=== PATIENT | male | born 1985 | race Caucasian/White ===

== ENCOUNTER 2021-08-07 12:38 | Emergency (ER) | payer BC, SELFPAY ==
[2021-08-07 13:25] VITALS: BP 115/72; PULSE 82; RESP 20; TEMP 36.8; O2SAT 98; BMI 23.8
--- NOTE | 2021-08-07 14:06 | ED_ITS ---
HPI - Skin/Abscess/Foreign Bdy General: Chief complaint: General Medical Stated complaint: L side PT says possible infection of injection Time Seen by Provider: 08/07/21 13:57 Source: patient Mode of arrival: ambulatory Limitations: no limitations History of Present Illness: HPI narrative: Patient is a 35-year-old male who presents to ED today with a complaint of induration and swelling following injection of a diabetic needle/insulin. Patient states 2 days ago he injected hi mself with insulin to his right lateral abdomen. He states shortly after he began noticing swelling to the area that has continued to enlarge. He states area is warm to touch. complaint: lesion Onset (ago): hour(s) Tetanus up to date: yes Severity: mild Relieving factors: none Exacerbating factors: none Associated symptoms: Reports no associated symptoms; Deny chills, fever(s) or vomiting Treatments prior to arrival: none Review of Systems Const: Denies: fever(s), chills, body aches or fatigue Card: Denies: chest pain Resp: Denies: dyspnea GI: Denies: abdominal pain, vomiting or diarrhea : Denies: flank pain or dysuria Skin/Breast: Reports: new lesions Neuro: Denies: headache(s) Physical Exam Const: COMMON NORMALS: no acute distress, average body habitus, patient oriented x3, no limitations, healthy appearing, alert and well nourished Resp: COMMON NORMALS: normal respiratory effort and clear to auscultation bilaterally AUSCULTATION: clear to auscultation bilaterally Cardio: COMMON NORMALS: regular rate and regular rhythm RATE: regular rate RHYTHM: regular rhythm GI: GI image (male): 1. 2in indurated area with small injection bandar; area is warm to touch but no overlying erythema; no fluctuance at this time Neuro: COMMON NORMALS: patient oriented x3 SENSORIUM/ORIENTATION: Yes alert Course Vital Signs: Vital signs: Vital Signs Temperature 98.2 F 08/07/21 13:25 Pulse Rate 82 08/07/21 13:25 Respiratory Rate 20 H 08/07/21 13:25 Blood Pressure 115/72 08/07/21 13:25 Pulse Oximetry 98 08/07/21 13:25 MDM - Skin/Abscess/Foreign Bdy MDM Narrative: Medical decision making narrative: Patient here with induration at an injection site. At this time I would recommend alternating warm and cold compresses and continuing to monitor for the next 24 to 48 hours. Told patient I will write him a prescription for antibiotics should area continue to worsen. Patient verbalizes understanding. Discharge Plan Discharge Patient Disposition: Home Clinical Impression: Induration at injection site Condition: Stable Prescriptions: New Bactrim DS 800-160 mg tablet 1 tab PO BID 7 Days Qty: 14 RF: 0 Discharge Orders: Discharge ED (Routine); Ordered 08/07/21 Ordered By: Christel Melara Coding Level of Care Code ED Data Analytics Specialist for Deng Branham
== END 2021-08-07 14:27 | disposition home or self-care (01) ==
PROVIDERS: Emergency Provider Physician Assistant
DX: R23.4 Changes in skin texture (principal); T80.90XA Unspecified complication following infusion and therapeutic injection, initial encounter; Y74.1 Therapeutic (nonsurgical) and rehabilitative general hospital and personal-use devices associated with adverse incidents
CPT/HCPCS: 99281

== ENCOUNTER 2021-08-09 08:34 | Observation (INO) | payer BC, SELFPAY ==
[2021-08-09] VITALS (13 sets, daily range): BP systolic 111–132; BP diastolic 59–90; PULSE 62–98; RESP 14–18; TEMP 36.8–37.3; O2SAT 95–100; BMI 23.7
--- NOTE | 2021-08-09 09:15 | XRR_ITS ---
PROCEDURE INFORMATION: Exam: XR Chest Exam date and time: 08/09/2021 9:15 AM Age: 35 years old Clinical indication: Fever TECHNIQUE: Imaging protocol: XR of the chest. Views: 1 view. COMPARISON: CR Chest 1 [place] [id number] 10/18/2016 9:54 PM FINDINGS: Lungs: Unremarkable. No consolidation. Pleural spaces: Unremarkable. No pleural effusion. No pneumothorax. Heart/Mediastinum: Stable cardiomediastinal silhouette. Bones/joints: Unremarkable. XR/XR chest 1V portable [id number] IMPRESSION: No acute findings. Radiation Dose CTDIVOL = (mGy): DLP = (mGy-cm)
--- NOTE | 2021-08-09 09:15 | ECG_ITS ---
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1985 Requested By: Aleja Esposito Order Number: [id number] Reading MD: BELINDA GO Measurements Intervals [place] Rate: 86 P: 62 WA: 149 QRS: 15 QRSD: 92 T: 64 QT: 368 QTc: 440 Interpretive Statements SINUS RHYTHM Compared to ECG 10/18/2016 21:46:20 Sinus tachycardia no longer present ST (T wave) deviation no longer present Early repolarization no longer present Electronically Signed On 08-10-2021 12:54:07 CENTRAL SUPPLY AIDE by BELINDA GO [email or web address]/[id number]
--- NOTE | 2021-08-09 09:29 | W.ED.EXTPRO ---
HPI - Extremity Problem General: Chief complaint: Extremity Problem,Nontraumatic Stated complaint: INFECTION/SWELLING IN R HIP Time Seen by Provider: 08/09/21 08:53 Source: patient Mode of arrival: ambulatory Limitations: no limitations History of Present Illness: HPI Narrative: Patrick is a nice 35-year-old male with a history of type 1 diabetes who comes in complaining of right hip pain. Patient states after Thanksgiving he noticed a red tender area over his right hip. He was seen here in the ER and placed on Bactrim. He states has been on this for approximately 24 hours but the swelling has gotten bigger. He says he feels in general unwell with aches and pains but denies any true fever. He has had no nausea or vomiting or diarrhea. The area is significantly larger and appears swollen. He is able to walk without any difficulty. Because of this he comes in to be evaluated for worsening of his infection. Associated symptoms: Deny chest pain, fever(s) or rash Review of Systems Const: Denies: fever(s), chills, body aches, fatigue, malaise or diaphoresis Eyes: Denies: change in vision, blurry vision, photophobia, eye discomfort, eye discharge, eye redness or yellow eyes ENMT: Denies: throat pain, odynophagia, hoarseness, swelling of lips/tongue, ear or mastoid pain, ear discharge, change in hearing or nasal discharge Card: Denies: chest pain, palpitations, irregular heart rhythm, edema, lightheadedness, syncope, pre-syncope, dyspnea on exertion or orthopnea Resp: Denies: dyspnea, productive cough, non-productive cough, wheezing, hemoptysis or chest congestion GI: Denies: abdominal pain, nausea, vomiting, hematemesis, coffee ground emesis, heartburn, diarrhea, constipation, GI cramping, hematochezia or melena : Denies: flank pain, dysuria, urinary frequency, urinary urgency or hematuria Musc: Denies: neck pain, back pain, extremity pain, extremity swelling, joint pain, joint swelling, joint redness, joint warmth or joint stiffness Skin/Breast: Reports: erythema, skin pain and skin tenderness; Denies: rash or pruritus Neuro: Denies: headache(s), numbness in extremities, weakness in extremities, sensory changes, lack of coordination, difficulty walking, dizziness, vertigo, confusion, Slurred speech present or seizure-like activity Eligio/Lymph: Denies: easy bruising, easy bleeding, petechiae, purpura or enlarged lymph nodes All/Imm: Denies: urticaria, throat swelling, tongue swelling, facial swelling or acute wheezing PFSH ED PFSH: Medical History (Updated 08/09/21 @ 11:45 by Aleja Bowen) Diabetes mellitus Physical Exam Const: COMMON NORMALS: no acute distress, patient oriented x3, no limitations and alert GENERAL APPEARANCE: cooperative HENMT: COMMON NORMALS: normocephalic, atraumatic, external ears normal, EAC's normal and Normal external nose present HEAD & SCALP: normal to inspection, normocephalic and atraumatic FACE & SINUS: normal facial exam and face symmetric NOSE: Normal external nose present and Normal nares present EXTERNAL EAR: Yes external ears normal EXTERNAL AUDITORY CANAL: EAC's normal MOUTH: Normal oral and palatal mucosa present, lip normal and tongue normal Eye: COMMON NORMALS: Equal, round and reactive pupils present and conjunctivae normal GENERAL EYE: appearance normal, both eyes and all related structures ALIGNMENT: Yes alignment normal PERIORBITAL: periorbital findings normal EYELID: eyelids normal CONJUNCTIVA: Yes conjunctivae normal SCLERA: sclerae normal PUPIL: Yes Equal, round and reactive pupils present Neck/C-Spine: COMMON NORMALS: full ROM, no lymphadenopathy, supple, no meningeal signs and no JVD GENERAL: Yes normal visual inspection and Yes trachea midline Chest: COMMONS NORMALS: normal inspection of the chest and normal palpation of entire chest wall Resp: COMMON NORMALS: normal respiratory effort, No retractions, No use of accessory muscles and clear to auscultation bilaterally EFFORT & INSPECTION: Yes able to speak in complete sentences and Yes symmetric chest movement AUSCULTATION: clear to auscultation bilaterally, no crackles, no rales, no rhonchi and no wheezes Cardio: COMMON NORMALS: no JVD, regular rate, regular rhythm, S1 normal heart sound present and S2 normal heart sound present RATE: regular rate RHYTHM: regular rhythm HEART SOUNDS: S1 normal heart sound present, S2 normal heart sound present, no click, no gallops, no murmurs and no rubs GI: COMMON NORMALS: Soft to palpation and No hepatosplenomegaly present PALPATION: Yes Soft to palpation, No Tenderness to palpation present (GI), No Guarding due to palpation present (GI), No Rigid due to palpation, Yes No hepatosplenomegaly present, No Hernia present, No Palpable mass present and No Pulsatile mass present : COMMON NORMALS: Yes no CVA tenderness BLADDER/KIDNEY EXAM: Yes no CVA tenderness Back/Pelvis: COMMON NORMALS: no CVA tenderness, thoracic and lumbar spine normal to inspection, no thoracic nor lumbar tenderness and thoraco-lumbar ROM normal Extremity: COMMON NORMALS: normal to inspection, full ROM, capillary refill normal, no joint enlargement, no clubbing, cyanosis or edema and no calf tenderness Neuro: COMMON NORMALS: patient oriented x3, CN's II-XII intact bilaterally, moves all extremities, no focal motor deficits and no sensory deficits noted SENSORIUM/ORIENTATION: Yes alert MENINGEAL SIGNS: Yes no meningeal signs SPEECH: speech normal Psych: COMMON NORMALS: mental status grossly normal, Normal thought process present, cooperative, normal affect, speech normal and activity/motor behavior normal SPEECH: Yes normal speech THOUGHT PROCESS: Normal thought process present Skin: COMMON NORMALS: turgor normal, no jaundice, no petechiae and no mottling NARRATIVE SKIN EXAM: Area over right hip with swelling and induration and cellulitis. Fluctuance present. GENERAL SKIN EXAM: turgor normal Course Vital Signs: Vital signs: Vital Signs Temperature 99.1 F 08/09/21 08:49 Pulse Rate 83 08/09/21 10:53 Respiratory Rate 14 08/09/21 10:53 Blood Pressure 112/90 08/09/21 10:53 Pulse Oximetry 95 08/09/21 10:53 MDM - Extremity (Nontraumatic) [facility] Narrative: Medical decision making narrative: 1144 -the patient appears to have a deep abscess by bedside ultrasound. It is large and I believe will not be amenable to draining here in the ER. He is likely continue to go the operating room for the most appropriate treatment. I reviewed the case in full with Dr. Mendoza who is agreeable to do so. I reviewed the case in full with Dr. Lowe. He agrees to admit and he will work-up the patient for possible endocarditis with echo, continued IV antibiotics and will follow from here. At this time the patient has full range of motion of his hip without any sign of discomfort. I believe he probably has some skin discomfort but there is no sign of septic joint. Patient is not diabetic ketoacidosis but will continue monitor him closely. Lab Data: Attestation: I reviewed the patient's lab results. Labs: Lab Results 08/09/21 08/09/21 08/09/21 09:38 10:05 10:05 WBC 14.5 10^3/uL H 10 ^3/uL (4.0-10.0) RBC 3.89 10^6/uL L 10 ^6/uL (4.1-5.3) Hgb 12.0 g/dL g/dL (11.7-16.6) Hct 36.8 % L % (42.0-52.0) MCV 94.6 fl H fl (80-94) MCH 30.8 pg pg (28.0-34.0) MCHC 32.6 g/dL g/dL (30.0-36.0) RDW 12.2 % % (12.1-15.1) Plt Count 295 10^3/cmm 10^3 /cmm (130-400) MPV 9.6 fL fL (7.4-10.4) Neut % (Auto) 72.2 % % Lymph % (Auto) 18.4 % % Jack % (Auto) 7.4 % % Eos % (Auto) 1.2 % % Baso % (Auto) 0.3 % % Neut # (Auto) 10.49 10^3/uL H 1 0^3/uL (1.8-7.7) Lymph # (Auto) 2.7 10^3/uL 10^3/ uL (0.8-4.8) Jack # (Auto) 1.1 10^3/uL H 10^ 3/uL (0.2-0.9) Eos # (Auto) 0.2 10^3/uL 10^3/ uL (0.0-0.8) Baso # (Auto) 0.0 10^3/uL 10^3/ uL (0.0-0.1) Nucleated RBC % (a uto) 0 % % Nucleated RBCs # 0.0 /100WBC /100W BC Specimen Type Arterial Sample Site Radial, right ABG pH 7.41 (7.35-7.45) ABG pCO2 42.5 mmHg mmHg (35-45) ABG pO2 78.6 mmHg L mmHg (80.0-100.0) ABG HCO3 27.0 mmol/L H mmo l/L (22-26) ABG O2 Saturation 96.7 ABG Base Excess 2.1 mmol/L H mmol /L (-2.0-2.0) Jose Test Pos A-a O2 Gradient 2.5 mmHg L mmHg (5-10) Hematocrit 34.8 % L % (42-52) Hgb O2 Saturation 94.4 % L % (95-100) Carboxyhemoglobin 1.3 %THgb %THgb (0.4-20.1) Methemoglobin 1.1 % % (0.4-1.5) Total Hemoglobin 11.4 g/dL L g/dL (14-18) Sodium 128.0 mmol/L L mm ol/L 125 mmol/L L mmol /L (131-143) (136-145) Potassium 5.4 mmol/L H mmol /L 5.4 mmol/L H mmol /L (3.5-5.0) (3.5-5.1) Glucose 515.0 mg/dL H mg/ dL 523 mg/dL H* mg/d L (70-115) (65-115) Ionized Calcium 1.1 mmol/L mmol/L (1.1-1.4) O2 Delivery Device Room air FiO2 21.0 % % Human Resources Benefits Coordinator ID Ed Chloride 88 mmol/L L mmol/ L (98-107) Carbon Dioxide 24 mmol/L mmol/L (22-29) Anion Gap 18.4 (5-19) BUN 19 mg/dL mg/dL (6-20) Creatinine 1.0 mg/dL mg/dL (0.7-1.2) GFR Calculation 86.1 mL/min L mL/ min (90-130) Calculated Osmolal ity 286 mOsm/kg mOsm/ kg (285-295) Lactic Acid Calcium 8.9 mg/dL mg/dL (8.5-10.5) Magnesium 1.4 mg/dL L mg/dL (1.7-2.3) Total Bilirubin 1.2 mg/dL mg/dL (0.15-1.2) AST 39 U/L U/L (0-40) ALT 49 U/L H U/L (0-41) Alkaline Phosphata se 119 IU/L IU/L (40-130) Troponin T Baselin e Total Protein 6.7 g/dL g/dL (6.6-8.7) Albumin 3.5 g/dL g/dL (3.5-5.2) Globulin 3.2 g/dL g/dL (1.3-4.6) Serum Ketones 08/09/21 08/09/21 08/09/21 10:05 10:05 10:05 WBC RBC Hgb Hct MCV MCH MCHC RDW Plt Count MPV Neut % (Auto) Lymph % (Auto) Jack % (Auto) Eos % (Auto) Baso % (Auto) Neut # (Auto) Lymph # (Auto) Jack # (Auto) Eos # (Auto) Baso # (Auto) Nucleated RBC % (a uto) Nucleated RBCs # Specimen Type Sample Site ABG pH ABG pCO2 ABG pO2 ABG HCO3 ABG O2 Saturation ABG Base Excess Jose Test A-a O2 Gradient Hematocrit Hgb O2 Saturation Carboxyhemoglobin Methemoglobin Total Hemoglobin Sodium Potassium Glucose Ionized Calcium O2 Delivery Device FiO2 Human Resources Benefits Coordinator ID Chloride Carbon Dioxide Anion Gap BUN Creatinine GFR Calculation Calculated Osmolal ity Lactic Acid 1.1 mmol/L mmol/L (0.5-2.2) Calcium Magnesium Total Bilirubin AST ALT Alkaline Phosphata se Troponin T Baselin e 10 ng/L ng/L (0-15) Total Protein Albumin Globulin Serum Ketones Negative (Negative) Imaging Data^: CXR: Attestation: I personally reviewed and interpreted this imaging study as follows: My impression: No acute cardiopulmonary findings. EKG Data^: EKG 1: EKG interpretation date: 08/09/21 EKG interpretation time: 10:26 Interpretation: Normal sinus rhythm at 86 beats a minute, no blocks, normal intervals, no acute ST-T wave changes, significant wandering baseline artifact. Discharge Plan Discharge Patient Disposition: Admitted As Inpatient Clinical Impression: Abscess or cellulitis of hip Condition: Stable Prescriptions: No Action sulfamethoxazole-trimethoprim [Bactrim DS] 800-160 mg tablet 1 tab PO BID 7 Days Qty: 14 RF: 0 Coding Level of Care Code ED Avionics Systems Repairer for Chg Fwd Exam Comprehensive
--- NOTE | 2021-08-09 09:32 | XRR_ITS ---
PROCEDURE INFORMATION: Exam: XR Right Hip Exam date and time: 08/09/2021 9:32 AM Age: 35 years old Clinical indication: Hip pain; Right hip TECHNIQUE: Imaging protocol: XR Right hip. Views: 2 or 3 views hip with pelvis when performed. COMPARISON: No relevant prior studies available. FINDINGS: Bones/joints: Unremarkable. No acute fracture. Soft tissues: Unremarkable. XR/XR hip RT 2-3V wo/w pel* [id number] IMPRESSION: No acute findings. Radiation Dose CTDIVOL = (mGy): DLP = (mGy-cm)
[2021-08-09] MEDS: vancomycin 1,500 MG/300 ML PIGGYBACK 200 MG IV (09:51)
[2021-08-09] MEDS: morphine 4 mg/mL SDV 1 mL IVP (09:52)
[2021-08-09] MEDS: piperacillin-tazobactam 3.375 GM in sodium chloride 0.9% (plus) 50 ML IV ×2 (09:52→16:23)
[2021-08-09] MEDS: ondansetron 2 mg/ML SDV 2 mL 4 MG IVP (09:52)
[2021-08-09] MEDS: clindamycin 900 MG/50 ML PREMIX 100 MG IV (09:53)
[2021-08-09 10:10] LABS: ABG PCO2 42.5 mmHg (35-45); ABG PH Result 7.41 (7.35-7.45); Alveolar-Arterial Oxygen Gradi 2.5 mmHg (5-10); Arterial Blood Gas Hematocrit 34.8 % (42-52); Base Excess ABG 2.1 mmol/L (-2.0-2.0); Blood Gas Allen Test Pos; Blood Gas Operator Identificat ED; Blood Gas Sample Site Radial, right; Blood Gas Sample Type Arterial; Carboxyhemoglobin 1.3 %THgb (0.4-20.1); HGB O2 Sat 94.4 % (95-100); Ionized Calcium Level - ABG 1.1 mmol/L (1.1-1.4); Methemoglobin 1.1 % (0.4-1.5); Oxygen Device ROOM AIR; Oxygen Saturation ABG 96.7; PO2 ABG 78.6 mmHg (80.0-100.0); Potassium Level - ABG 5.4 mmol/L (3.5-5.0); Total Hemoglobin 11.4 g/dL (14-18)
[2021-08-09 10:34] LABS: Basophils % 0.3 %; Eosinophils # 0.2 10^3/uL (0.0-0.8); Eosinophils % 1.2 %; Hematocrit 36.8 % (42.0-52.0); Lymphocytes # 2.7 10^3/uL (0.8-4.8); Lymphocytes % 18.4 %; Mean Corpuscular HGB Conc 32.6 g/dL (30.0-36.0); Mean Corpuscular Hemoglobin 30.8 pg (28.0-34.0); Mean Corpuscular Volume 94.6 fl (80-94); Mean Platelet Volume 9.6 fL (7.4-10.4); Monocytes # 1.1 10^3/uL (0.2-0.9); Monocytes % 7.4 %; Neutrophils # 10.49 10^3/uL (1.8-7.7); Neutrophils % 72.2 %; Nucleated Red Blood Cells % 0 %; Platelet Count 295 10^3/cmm (130-400); Red Blood Count 3.89 10^6/uL (4.1-5.3); Red Cell Distribution Width 12.2 % (12.1-15.1); White Blood Count 14.5 10^3/uL (4.0-10.0)
[2021-08-09 10:48] LABS: Ketone (Acetest) Serum Negative (Negative)
[2021-08-09 11:01] LABS: Troponin(5th) Baseline 10 ng/L (0-15)
[2021-08-09 11:02] LABS: Alanine Aminotransferase 49 U/L (0-41); Albumin Level 3.5 g/dL (3.5-5.2); Alkaline Phosphatase 119 IU/L (40-130); Anion Gap 18.4 (5-19); Aspartate Amino Transferase 39 U/L (0-40); Blood Urea Nitrogen 19 mg/dL (6-20); Calcium 8.9 mg/dL (8.5-10.5); Carbon Dioxide 24 mmol/L (22-29); Chloride 88 mmol/L (98-107); Globulin 3.2 g/dL (1.3-4.6); Glomerular Filtration Rate 86.1 mL/min (90-130); Magnesium 1.4 mg/dL (1.7-2.3); Osmolality Calculated 286 mOsm/kg (285-295); Potassium 5.4 mmol/L (3.5-5.1); Sodium 125 mmol/L (136-145); Total Bilirubin 1.2 mg/dL (0.15-1.2); Total Protein 6.7 g/dL (6.6-8.7)
[2021-08-09 11:03] LABS: Lactic Sepsis W/Reflex 1.1 mmol/L (0.5-2.2)
[2021-08-09 11:14] LABS: Glucose 523 mg/dL (65-115)
--- NOTE | 2021-08-09 11:15 | ECG_ITS ---
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
[2021-08-09 11:51] LABS: Glucose Point of Care 307 mg/dL (70-110)
[2021-08-09] MEDS: insulin regular-human 100 units/1 mL 5 UNIT IVP (12:01)
[2021-08-09] MEDS: magnesium sulfate premix 2 GM/50 ML PIGGYBACK IV (12:07)
--- NOTE | 2021-08-09 12:40 | PC.NURSE ---
Attempted to call report to med surg, was placed on hold for 15 minutes with no answer.
--- NOTE | 2021-08-09 12:55 | PC.NURSE ---
Attempted to call report and this time. RN not available but will call back.
[2021-08-09 13:01] LABS: Troponin 5 2HR 8.98 ng/L (0-15)
[2021-08-09 13:10] LABS: Troponin 5 2HR Delta -1.02 ABS# (0-10)
[2021-08-09 13:13] LABS: Glucose Point of Care 238 mg/dL (70-110)
--- NOTE | 2021-08-09 14:18 | PM.HP ---
Providers/Chief Complaint Admitting Physician: Keith Lowe Chief Complaint: INFECTION/SWELLING IN R HIP History of Present Illness Pleasant 35-year-old gentleman with history of diabetes, remote history of IVDU, cellulitis and abscess, staph infection (does not remember if MRSA), needing antecubital debridement bilaterally, however, reports in long-term remission, has had no injection drug use, presents due to red area of the right pelvis, with swelling, tender, redness, started after he injected insulin through the shirt. Came for evaluation to ER yesterday, prescribed a course of Bactrim., However, swelling has gotten bigger. He reports that he uses insulin sliding scale. Does not use long-acting insulin but may need to. Reports has not had a A1c done in a while, last time it was 8. Reports does not measure blood glucose, usually goes by how he feels. Bedside ultrasound in ER with finding of soft tissue abscess by ER physician. Surgery consulted for I&D. Leukocytosis noted 14.5. Blood cultures collected. He received Zosyn, vancomycin, clindamycin. Glucose noted 523. Sodium 125, potassium 5.4, magnesium 1.4, BUN 19, creatinine 1, anion gap 18, bicarb 24. Denies any pain of the right hip or difficulty with weightbearing. No trouble moving his right hip. He is visiting in town with his for Thanksgiving. He is supposed to be heading back to [place] where he is supposed to be going back to work on Tuesday. 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 Review of Systems Const: Reports: body aches; Denies: fever(s) or chills Eyes: Denies: change in vision or eye redness ENMT: Denies: throat pain, oral sores or ear or mastoid pain Card: Denies: chest pain, edema, pre-syncope or dyspnea on exertion Resp: Denies: dyspnea, productive cough, change in phlegm color or hemoptysis GI: Denies: abdominal pain, nausea, vomiting, diarrhea, constipation, hematochezia or melena : Denies: flank pain, difficulty urinating, urinary frequency or hematuria Musc: Denies: back pain, joint swelling or joint redness Skin/Breast: Reports: erythema and skin swelling (Right side pelvis); Denies: rash Neuro: Denies: headache(s), numbness in extremities, weakness in extremities, dizziness, confusion or seizure-like activity Endo: Denies: polyuria or polydipsia Eligio/Lymph: Denies: easy bleeding or purpura All/Imm: Denies: urticaria, throat swelling or tongue swelling Medications/Allergies Home Medications Medication Instructions Recorded Confirmed Last Taken Type sulfamethoxazole-trimethoprim 1 tab PO BID 7 Days #14 tab 08/07/21 08/09/21 08/08/21 Rx [Bactrim DS] Allergies Allergy/AdvReac Type Severity Reaction Status Date / Time No Known Allergies Allergy Verified 08/09/21 08:49 PFSH Acute PFSH: Medical History Cellulitis and abscess of upper extremity Diabetes mellitus History of drainage of abscess Surgical History (Updated 08/09/21 @ 14:23 by Keith Lowe MD) History of intravenous drug abuse Family History Other No significant family history Social History Smoking and tobacco status: current every day smoker smokeless tobacco Smokeless tobacco user: chewing tobacco Alcohol intake: never Substance/Drug Use: never Lives independently: Yes Household members: spouse Marital status: Current occupational status: employed Vitals/I&O/Wt Last Vital Signs Temp 99.1 F 08/09/21 08:49 Pulse 83 08/09/21 10:53 Resp 14 08/09/21 10:53 BP 112/90 08/09/21 10:53 Pulse Ox 95 08/09/21 10:53 08/08/21 08/09/21 08/09/21 22:59 06:59 14:59 Intake Total 100 / 100 Balance 100 / 100 Weight last 48 hrs Weight 86.183 kg Physical Exam Const: COMMON NORMALS: no acute distress and patient oriented x3 HENMT: COMMON NORMALS: oropharynx normal Neck/C-Spine: COMMON NORMALS: no JVD Resp: COMMON NORMALS: normal respiratory effort and clear to auscultation bilaterally AUSCULTATION: clear to auscultation bilaterally Cardio: COMMON NORMALS: no JVD, regular rhythm, S1 normal heart sound present, S2 normal heart sound present and No murmurs present (Cardio) RHYTHM: regular rhythm HEART SOUNDS: S1 normal heart sound present and S2 normal heart sound present GI: COMMON NORMALS: Normal to inspection, nondistended, normoactive bowel sounds present, Soft to palpation and non-tender PALPATION: Yes Soft to palpation Extremity: COMMON NORMALS: no joint enlargement and no pedal edema Neuro: COMMON NORMALS: patient oriented x3 and moves all extremities Skin: GENERAL SKIN EXAM: erythema (posterolat R side pelvis, round, 10cm, swelling, warm, tender) Data : 08/09/21 10:05 08/09/21 10:05 Micro: Microbiology 08/09/21 10:05 Blood Culture - Preliminary Blood SPECIMEN COLLECTED 08/09/21 10:06 Blood Culture - Preliminary Blood SPECIMEN COLLECTED A&P Assessment and plan (1) Abscess or cellulitis of hip: Cellulitis and abscess of skin and soft tissue overlying posterior lateral right pelvis. Reports following insulin injection through through a short. Denies any recent IV drug use. Received Zosyn, vancomycin, clindamycin in ER. Blood cultures collected. Received fluid resuscitation. Abscess noted on bedside ultrasonography. Surgery consulted for I&D which is anticipated in OR. Continue antibiotics. Keep n.p.o. after midnight. Status: Acute (2) Hyperglycemia: Blood glucose 523. Received 10 units regular insulin. Continue to monitor blood glucose. Aggressive sliding scale. Status: Acute (3) Diabetes mellitus: Check A1c. He states has not been using his glucometer, administering insulin sliding scale by how he feels. Discussed with him to make sure to measure glucose and administer accordingly. Discussed importance of good diabetes control. Risks of poor diabetic control. He verbalized understanding. Encouraged him to follow-up with primary provider, he does not currently have one. Encouraged him to establish with one. He states intends to do so as soon as his insurance comes through. Status: Acute (4) Induration at injection site: Reported following insulin injection through a short. Discussed with him to avoid injecting through anything. Status: Acute (5) Hyperkalemia: Unclear if possibly due to Bactrim, although just prescribed yesterday. Recheck chemistry. Status: Acute (6) Hypomagnesemia: Replaced. Recheck level. Status: Acute (7) Hyponatremia: Sodium 125. Corrected for glucose 135. Status: Acute Attestations Medical Necessity Statement*: Place in observation for assessment and management of left posterior lateral pelvic skin and soft tissue cellulitis and abscess without response to conservative outpatient treatment and gentleman with underlying diabetes, history of staphylococcal infections requiring extensive debridement, as well as severe hyperglycemia and a number of electrolyte abnormalities. Coding Level of Care Code Acute Human Resources Consultant for [facility] Diagnoses Abscess or cellulitis of hip Hyperglycemia R73.9 Diabetes mellitus E11.9 Induration at injection site R23.4 Hyperkalemia E87.5 Hypomagnesemia E83.42 Hyponatremia E87.1
[2021-08-09] MEDS: sodium chloride 0.9% 1,000 ML 100 ML IV (16:12)
[2021-08-09 16:44] LABS: Glucose Point of Care 143 mg/dL (70-110)
[2021-08-09] MEDS: vancomycin 1,250 MG/250 ML PIGGYBACK 200 MG IV (17:33)
[2021-08-09] MEDS: insulin lispro 100 unit/1 mL SUBCUT (17:38)
--- NOTE | 2021-08-09 17:48 | P.CONIM_ITS ---
Providers/Reason For Consult Consulting Physician/Specialty*: General Surgery Dr. Mendoza Reason for Consult*: Right hip abscess Attending Physician: Keith Lowe History of Present Illness History of Present Illness Patrick Gillespie is a 35 year old male who is a insulin-dependent diabetic who presented to the ER the day before yesterday with pain, redness and swelling and was discharged home on Bactrim for the right hip cellulitis. Today he presented to the ER again with worsening pain redness and swelling in that region. Lashawn ent also had some fevers. He states that he has had similar cellulitis and abscess requiring surgical intervention in the past in the upper extremity. He had to have wound VAC placed at that point. Patient states that he injected a dose of insulin in the right hip a few days ago. Review of Systems General: Reports: 10 or more systems reviewed and unremarkable except in HPI and below Meds/Allergies Home Medications and Allergies Home Medications Medication Instructions Recorded Confirmed Last Taken Type sulfamethoxazole-trimethoprim 1 tab PO BID 7 Days #14 tab 08/07/21 08/09/21 08/08/21 Rx [Bactrim DS] Allergies Allergy/AdvReac Type Severity Reaction Status Date / Time No Known Allergies Allergy Verified 08/09/21 08:49 Current Medications Current Medications Generic Name Dose Route Start Last Admin Trade Name Freq PRN Reason Stop Dose Admin Sodium Chloride 1,000 mls @ 100 mls/hr 08/09/21 15:06 08/09/21 16:12 Sodium Chloride 0.9% IV 100 mls/hr .Q10H ABEBA Administration Piperacillin Sod/Tazobactam 50 mls @ 12.5 mls/hr 08/09/21 16:00 08/09/21 17:38 Sod 3.375 gm/ Sodium Chloride IV 0 mls/hr Q8H ABEBA Infusion Protocol Vancomycin/PEG/NADA/Lysine/Water 1,250 mg in 250 mls @ 200 mls/hr 08/09/21 18:00 08/09/21 17:33 Vancocin IV 200 mls/hr Q8H ABEBA Administration Insulin Human Lispro 0 unit 08/09/21 18:00 08/09/21 17:38 Insulin Lispro 100 Unit/1 Ml SUBCUT 2 unit WM&BEDTIME ABEBA Administration Protocol PFSH Acute PFSH: Medical History (Updated 08/09/21 @ 14:37 by Keith Lowe MD) Cellulitis and abscess of upper extremity Diabetes mellitus Surgical History (Updated 08/09/21 @ 17:48 by Dennys Mendoza MD) History of drainage of abscess History of intravenous drug abuse Family History Other No significant family history Social History Smoking and tobacco status: current every day smoker smokeless tobacco Smokeless tobacco user: chewing tobacco Alcohol intake: never Substance/Drug Use: never Lives independently: Yes Household members: spouse Marital status: Current occupational status: employed Vitals/I&O/Wt Last Vital Signs Temp 98.4 F 08/09/21 15:51 Pulse 79 08/09/21 15:51 Resp 16 08/09/21 15:51 BP 118/59 08/09/21 15:51 Pulse Ox 98 08/09/21 15:51 08/09/21 08/09/21 08/09/21 06:59 14:59 22:59 Intake Total 100 / 3051.115 2951.115 / 3051.115 Balance 100 / 3051.115 2951.115 / 3051.115 Weight last 48 hrs Weight 190 lb Weight 190 lb Physical Exam Narrative: EXAM NARRATIVE: HEENT: Normocephalic Eye: Sclera /conjunctiva normal Respiratory and chest: Bilateral clear breath sounds on auscultation Cardiovascular: Normal S1 and S2 heart sounds Abdomen: Soft to palpation Neurological: Oriented to place person and time Skin: Intact, no lesions appreciated on gross exam Data Micro: Micro: Microbiology 08/09/21 10:05 Blood Culture - Pr eliminary Blood SPECIMEN [facility] 08/09/21 10:06 Blood Culture - Pr eliminary Blood SPECIMEN [facility] A&P Assessment and plan (1) Abscess or cellulitis of hip: 35-year-old male insulin-dependent diabetic who presents with cellulitis and abscess of the right hip. His WBC is 14.5 Plan for incision and drainage of right hip abscess under MAC today Procedure, risks, benefits and alternatives have been discussed with the patient who wishes to proceed with surgery. 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
[2021-08-09 17:56] LABS: Troponin 5 6HR 8.17 ng/L (0-15)
[2021-08-09 17:57] LABS: Troponin 5 6HR Delta -1.83 ng/L (0-12)
[2021-08-09 18:34] LABS: Alanine Aminotransferase 39 U/L (0-41); Albumin Level 3.3 g/dL (3.5-5.2); Alkaline Phosphatase 100 IU/L (40-130); Anion Gap 16.8 (5-19); Aspartate Amino Transferase 29 U/L (0-40); Blood Urea Nitrogen 15 mg/dL (6-20); Calcium 8.2 mg/dL (8.5-10.5); Carbon Dioxide 24 mmol/L (22-29); Chloride 98 mmol/L (98-107); Globulin 2.8 g/dL (1.3-4.6); Glomerular Filtration Rate 111.3 mL/min (90-130); Glucose 103 mg/dL (65-115); Magnesium 1.6 mg/dL (1.7-2.3); Osmolality Calculated 281 mOsm/kg (285-295); Potassium 3.8 mmol/L (3.5-5.1); Sodium 135 mmol/L (136-145); Total Bilirubin 0.4 mg/dL (0.15-1.2); Total Protein 6.1 g/dL (6.6-8.7)
--- NOTE | 2021-08-09 19:07 | ANES.PREANE2 ---
Pre-Anesthetic Assessment Pre-Anesthetic Assessment: Height/Weight: Height 1.91 m Weight 86.183 kg Temp Pulse Resp BP Pulse Ox 98.2 F 72 18 125/70 98 08/09/21 18:25 08/09/21 18:25 08/09/21 18:25 08/09/21 18:25 08/09/21 18:25 Preop Diagnosis: Right hip abscess Proposed Procedure: Operation Date: 08/09/21 20:00 Proposed Procedures p Incision And Drainage(Right) - Dennys Mendoza MD Familial anesthetic complications: none Was Beta Melania taken within 24 hours: N/A Was Clonidine taken within 24 hours: N/A Last intake: 1200 Social: Social History: No alcohol and No tobacco Comment: IVDA Exam: Pre-Anes Outpt Exam: alert, oriented x 3, clear to auscultation bilaterally and regular rate & rhythm Airway: Cervical ROM: WNL MP: 2 Dentition: Chipped Metabolic: Metabolic: DM (Type I) Anesthetic Plan: ASA status: 3 Anesthesia: MAC Risk of > 500 ml blood loss (7ml/kg in children): No Meds/Allergies Current Medications: Current Medications Generic Name Dose Route Start Last Admin Trade Name Freq PRN Reason Stop Dose Admin Sodium Chloride 1,000 mls @ 100 m ls/hr 08/09/21 15:06 08/09/21 16:12 Sodium Chloride 0.9% IV 100 mls/hr .Q10H ABEBA Administration Piperacillin Sod/T azobactam 50 mls @ 12.5 mls /hr 08/09/21 16:00 08/09/21 17:38 Sod 3.375 gm/ So dium Chloride IV 0 mls/hr Q8H ABEBA Infusion Protocol Vancomycin/PEG/NAD A/Lysine/Water 1,250 mg in 250 m ls @ 200 mls/hr 08/09/21 18:00 08/09/21 17:33 Vancocin IV 200 mls/hr Q8H ABEBA Administration Insulin Human Lisp ro 0 unit 08/09/21 18:00 08/09/21 17:38 Insulin Lispro 1 00 Unit/1 Ml SUBCUT 2 unit WM&BEDTIME ABEBA Administration Protocol PFSH Anesthesia PFSH: Medical History (Updated 08/09/21 @ 17:48 by Dennys Mendoza MD) Cellulitis and abscess of upper extremity Diabetes mellitus Surgical History (Updated 08/09/21 @ 17:48 by Dennys Mendoza MD) History of drainage of abscess History of intravenous drug abuse Family History Other No significant family history Social History Smoking and tobacco status: current every day smoker smokeless tobacco Smokeless tobacco user: chewing tobacco Alcohol intake: never Substance/Drug Use: never Lives independently: Yes Household members: spouse Marital status: Current occupational status: employed Data Anesthesia CBC & Chem 7: 08/09/21 10:05 08/09/21 17:14 Other Labs: Laboratory Results - last 48 hr 08/09/21 08/09/21 08/09/21 09:38 10:05 10:05 WBC 14.5 H RBC 3.89 L Hgb 12.0 Hct 36.8 L MCV 94.6 H MCH 30.8 MCHC 32.6 RDW 12.2 Plt Count 295 MPV 9.6 Neut % (Auto) 72.2 Lymph % (Auto) 18.4 Dougherty % (Auto) 7.4 Eos % (Auto) 1.2 Baso % (Auto) 0.3 Neut # (Auto) 10.49 H Lymph # (Auto) 2.7 Dougherty # (Auto) 1.1 H Eos # (Auto) 0.2 Baso # (Auto) 0.0 Nucleated RBC % (auto) 0 Nucleated RBCs # 0.0 Specimen Type Arterial Sample Site Radial, right ABG pH 7.41 ABG pCO2 42.5 ABG pO2 78.6 L ABG HCO3 27.0 H ABG O2 Saturation 96.7 ABG Base Excess 2.1 H Jose Test Pos A-a O2 Gradient 2.5 L Hematocrit 34.8 L Hgb O2 Saturation 94.4 L Carboxyhemoglobin 1.3 Methemoglobin 1.1 Total Hemoglobin 11.4 L Sodium 128.0 L 125 L Potassium 5.4 H 5.4 H Glucose 515.0 H 523 H* Ionized Calcium 1.1 O2 Delivery Device Room air FiO2 21.0 Performance Improvement Consultant ID Ed Chloride 88 L Carbon Dioxide 24 Anion Gap 18.4 BUN 19 Creatinine 1.0 GFR Calculation 86.1 L POC Glucose Calculated Osmolality 286 Lactic Acid Calcium 8.9 Magnesium 1.4 L Total Bilirubin 1.2 AST 39 ALT 49 H Alkaline Phosphatase 119 Troponin T Baseline Troponin T 120 Minute Delta Troponin T Troponin T Hi Sens 6Hr Troponin T Hi Sens 6Hr Delta Total Protein 6.7 Albumin 3.5 Globulin 3.2 Serum Ketones 08/09/21 08/09/21 08/09/21 10:05 10:05 10:05 WBC RBC Hgb Hct MCV MCH MCHC RDW Plt Count MPV Neut % (Auto) Lymph % (Auto) Dougherty % (Auto) Eos % (Auto) Baso % (Auto) Neut # (Auto) Lymph # (Auto) Dougherty # (Auto) Eos # (Auto) Baso # (Auto) Nucleated RBC % (auto) Nucleated RBCs # Specimen Type Sample Site ABG pH ABG pCO2 ABG pO2 ABG HCO3 ABG O2 Saturation ABG Base Excess Jose Test A-a O2 Gradient Hematocrit Hgb O2 Saturation Carboxyhemoglobin Methemoglobin Total Hemoglobin Sodium Potassium Glucose Ionized Calcium O2 Delivery Device FiO2 Performance Improvement Consultant ID Chloride Carbon Dioxide Anion Gap BUN Creatinine GFR Calculation POC Glucose Calculated Osmolality Lactic Acid 1.1 Calcium Magnesium Total Bilirubin AST ALT Alkaline Phosphatase Troponin T Baseline 10 Troponin T 120 Minute Delta Troponin T Troponin T Hi Sens 6Hr Troponin T Hi Sens 6Hr Delta Total Protein Albumin Globulin Serum Ketones Negative 08/09/21 08/09/21 08/09/21 11:47 12:23 13:11 WBC RBC Hgb Hct MCV MCH MCHC RDW Plt Count MPV Neut % (Auto) Lymph % (Auto) Dougherty % (Auto) Eos % (Auto) Baso % (Auto) Neut # (Auto) Lymph # (Auto) Dougherty # (Auto) Eos # (Auto) Baso # (Auto) Nucleated RBC % (auto) Nucleated RBCs # Specimen Type Sample Site ABG pH ABG pCO2 ABG pO2 ABG HCO3 ABG O2 Saturation ABG Base Excess Jose Test A-a O2 Gradient Hematocrit Hgb O2 Saturation Carboxyhemoglobin Methemoglobin Total Hemoglobin Sodium Potassium Glucose Ionized Calcium O2 Delivery Device FiO2 Performance Improvement Consultant ID Chloride Carbon Dioxide Anion Gap BUN Creatinine GFR Calculation POC Glucose 307 H 238 H Calculated Osmolality Lactic Acid Calcium Magnesium Total Bilirubin AST ALT Alkaline Phosphatase Troponin T Baseline Troponin T 120 Minute 8.98 Delta Troponin T -1.02 L Troponin T Hi Sens 6Hr Troponin T Hi Sens 6Hr Delta Total Protein Albumin Globulin Serum Ketones 08/09/21 08/09/21 08/09/21 16:33 17:14 17:14 WBC RBC Hgb Hct MCV MCH MCHC RDW Plt Count MPV Neut % (Auto) Lymph % (Auto) Dougherty % (Auto) Eos % (Auto) Baso % (Auto) Neut # (Auto) Lymph # (Auto) Dougherty # (Auto) Eos # (Auto) Baso # (Auto) Nucleated RBC % (auto) Nucleated RBCs # Specimen Type Sample Site ABG pH ABG pCO2 ABG pO2 ABG HCO3 ABG O2 Saturation ABG Base Excess Jose Test A-a O2 Gradient Hematocrit Hgb O2 Saturation Carboxyhemoglobin Methemoglobin Total Hemoglobin Sodium 135 L Potassium 3.8 Glucose 103 Ionized Calcium O2 Delivery Device FiO2 Performance Improvement Consultant ID Chloride 98 Carbon Dioxide 24 Anion Gap 16.8 BUN 15 Creatinine 0.8 GFR Calculation 111.3 POC Glucose 143 H Calculated Osmolality 281 L Lactic Acid Calcium 8.2 L Magnesium 1.6 L Total Bilirubin 0.4 AST 29 ALT 39 Alkaline Phosphatase 100 Troponin T Baseline Troponin T 120 Minute Delta Troponin T Troponin T Hi Sens 6Hr 8.17 Troponin T Hi Sens 6Hr Delta -1.83 L Total Protein 6.1 L Albumin 3.3 L Globulin 2.8 Serum Ketones Micro: Microbiology 08/09/21 10:05 Blood Culture - Preliminary Blood SPECIMEN COLLECTED 08/09/21 10:06 Blood Culture - Preliminary Blood SPECIMEN COLLECTED Cardiac Studies: No Data to Display
--- NOTE | 2021-08-09 20:46 | PM.OP ---
Operative Report Date of procedure: August 09, 2021 Pre-op Diagnosis: Right hip abscess Post-op Diagnosis: 4 x 3 cm right hip abscess Procedure Done: Incision and drainage of right hip abscess Specimens removed/disposition: aerobic and anerobic wound cultures Surgeon: Dennys Mendoza Anesthesia: MAC Estimated blood loss (mL): 5 Condition: stable Disposition: PACU Procedure: The patient was taken to the operating room and placed in the left lateral position under MAC. He is on therapeutic IV antibiotics. The right hip around the abscess was prepped and draped in a sterile manner. Using a 15 blade a 3 cm longitudinal incision was made with drainage of willie pus. Aerobic and anaerobic cultures were sent. 1% lidocaine with .5% Marcaine was used at the surgical site. The wound was irrigated with saline and packed with 1 inch ribbon gauze and covered with sterile dressings. The patient was transferred to recovery room in stable condition.
[2021-08-09 21:54] LABS: Glucose Point of Care 79 mg/dL (70-110)
[2021-08-09] MEDS: HYDROcodone-acetaminophen 5-325 mg Tablet 1 TAB PO (22:37)
[2021-08-10] VITALS: BP 128/79; PULSE 82; RESP 18; TEMP 36.7; O2SAT 96
[2021-08-10 00:29] LABS: Glucose Point of Care 227 mg/dL (70-110)
[2021-08-10] MEDS: sodium chloride 0.9% 1,000 ML 100 ML IV (01:31)
[2021-08-10] MEDS: vancomycin 1,250 MG/250 ML PIGGYBACK 200 MG IV ×2 (01:31→10:23)
[2021-08-10] MEDS: piperacillin-tazobactam 3.375 GM in sodium chloride 0.9% (plus) 50 ML IV ×2 (03:23→11:09)
[2021-08-10 04:00] VITALS: BP 124/68; PULSE 84; RESP 18; TEMP 36.6; O2SAT 98
[2021-08-10 05:42] LABS: Basophils % 0.2 %; Eosinophils # 0.2 10^3/uL (0.0-0.8); Eosinophils % 1.6 %; Hematocrit 35.5 % (42.0-52.0); Hemoglobin 11.2 g/dL (11.7-16.6); Lymphocytes # 3.1 10^3/uL (0.8-4.8); Lymphocytes % 24.9 %; Mean Corpuscular HGB Conc 31.5 g/dL (30.0-36.0); Mean Corpuscular Hemoglobin 30.8 pg (28.0-34.0); Mean Corpuscular Volume 97.5 fl (80-94); Mean Platelet Volume 9.9 fL (7.4-10.4); Monocytes % 8.4 %; Neutrophils # 7.94 10^3/uL (1.8-7.7); Neutrophils % 64.6 %; Nucleated Red Blood Cells % 0 %; Platelet Count 252 10^3/cmm (130-400); Red Blood Count 3.64 10^6/uL (4.1-5.3); Red Cell Distribution Width 12.1 % (12.1-15.1); White Blood Count 12.3 10^3/uL (4.0-10.0)
[2021-08-10 06:06] LABS: Blood Urea Nitrogen 15 mg/dL (6-20); Calcium 8.1 mg/dL (8.5-10.5); Carbon Dioxide 21 mmol/L (22-29); Chloride 96 mmol/L (98-107); Glomerular Filtration Rate 111.3 mL/min (90-130); Glucose 405 mg/dL (65-115); Osmolality Calculated 288 mOsm/kg (285-295); Sodium 130 mmol/L (136-145)
[2021-08-10 06:44] LABS: Glucose Point of Care 429 mg/dL (70-110)
[2021-08-10 07:04] LABS: Add Urine Microscopic? NO; Charge for UA Resulting for Rev
[2021-08-10 07:18] LABS: Bilirubin Urine Neg (Negative); Blood Urine Neg (Negative); Glucose Urine UA 4+ (Normal); Ketones Urine 1+ (Negative); Leukocyte Esterase Urine Negative (Negative); Nitrate Urine Negative (Negative); Protein Urine Neg (Negative); Urine Appearance Clear (CLEAR); Urine Color Straw (Yellow); Urobilinogen Urine Norm (Negative); pH Urine 5 (5-7)
[2021-08-10 07:22] VITALS: BP 95/56; PULSE 99; RESP 17; TEMP 36.9; O2SAT 94
[2021-08-10 07:27] LABS: Amphetamines Screen Urine Negative (Negative); Barbiturates Screen Urine Negative (Negative); Benzodiazepines Screen Urine Negative (Negative); Cocaine Screen Urine Negative (Negative); Opiate Screen Urine Positive (Negative); PCP Screen Urine Negative (Negative); THC Screen Urine Negative (Negative)
[2021-08-10] MEDS: insulin lispro 100 unit/1 mL SUBCUT ×2 (07:48→11:40)
--- NOTE | 2021-08-10 10:01 | PC.CHAP ---
Pastoral Care Encounter/Spiritual Assessment Type of Contact [] Declined children's service supervisor visit [] Patient/Family/Request visit [] Outpatient visit [] Follow-up visit [] Physician referral [] Code/Alert [x] Routine visit [] Staff referral [] Actively dying [] Patient sleeping [] Family support [] [] Out of room [] Palliative care [] [] Receiving care in room [] Pre-surgical visit [] Trauma [] Long length of stay [] ICU visit [] Other: Relational/Emotional Strength [x] Patient feels connected with others/family/visitors/staff [] Distress [] Loneliness/isolation [] Abandonment Spirituality of Patient [x] Person of Farzaneh [] Attends Yazdanism of their Farzaneh [x] Believes in Prayer [] Reads Bible or Episcopal materials [] There are Spiritual issues to be addressed Cuff Knitter Interventions [x] Prayer [] Active listening [] Non-anxious presence [] Spiritual/emotional support [] Crisis/trauma care [] Spiritual counseling [] Bereavement support [] Provided bereavement packet [] Provided Bible/devotional materials [] Provided toy/stuffed animal, coloring book to patient or family member [] Provided Communion [] Anointing/[place] [] Salvation [x] Completed spiritual assessment [] Other: Impact on Illness or Injury [] Angry [] Fearful [] Anxious [] Often cries [] Exhaustion [] Unable to work [] Unable to attend orthodox [] Unable to walk/stand [] Unable to read [] Unable to drive [] Unable to eat/drink [] Unable to sleep [] Unable to be with family [] Patient intubated [] Other: Summary Time spent with patient 10 min
[2021-08-10 11:31] VITALS: BP 108/66; PULSE 81; RESP 16; TEMP 36.8; O2SAT 94
[2021-08-10 11:59] LABS: Glucose Point of Care 420 mg/dL (70-110)
--- NOTE | 2021-08-10 12:08 | P.DS_ITS ---
Discharge Providers Date of Admission: 08/09/21 11:43 Date of Discharge: August 10, 2021 Attending Provider at Admission: Keith Lowe Attending Provider at Discharge: Raciel Hillman MD Consults: Surgery: Dr. Mendoza Diagnoses at Discharge Discharge Diagnosis (1) Abscess or cellulitis of hip: Status: Acute Reason for Visit Reason for Visit: INFECTION/SWELLING IN R HIP Hospital Course Hospital Course Patrick Gillespie is a 35 year old male with history of diabetes, remote history of IVDU, cellulitis and abscess, staph infection (does not remember if MRSA), needing antecubital debridement bilaterally, however, reports in long-term remission, has had no injection drug use, presented on August 09 due to red area of the right pelvis, with swelling, tender, redness, started after he injected insulin through the shirt. Came for evaluation to ER on August 08, prescribed a course of Bactrim., However, swelling has gotten bigger. He reports that he uses insulin sliding scale. Does not use long-acting insulin but may need to. Reports has not had a A1c done in a while, last time it was 8. Reports does not measure blood glucose, usually goes by how he feels. Bedside ultrasound in ER with finding of soft tissue abscess by ER physician. Surgery was consulted and patient underwent I&D on 08/09. Patient's hospital course was unremarkable. During hospitalization patient was found to have high blood sugars. Patient was counseled in detail regarding closure and tighter blood sugar control. Lantus was added to his medication list. Patient was eager to be discharged as he wanted to join back to his work as soon as possible back in [place]. He has been discharged in hemodynamically stable condition on oral antibiotics for next 7 days. Patient was strongly advised to have a PCP with whom he should follow-up within next 1 week for better wound care control. He was provided with wound care material. Lantus has been added to his medication list as well. Medication provided to him prior to discharge. Physical Exam Narrative: EXAM NARRATIVE: HEENT: Normocephalic Eye: Sclera /conjunctiva normal Respiratory and chest: Bilateral clear breath sounds on auscultation Cardiovascular: Normal S1 and S2 heart sounds Abdomen: Soft to palpation Neurological: Oriented to place person and time Skin: Intact, no lesions appreciated on gross exam Discharge Data Data Completed and Pending: Completed Studies During Hospitalization Category Date Time Status XR chest 1V daron ble [id number] Stat Exams 08/09/21 09:15 Completed XR hip RT 2-3V wo /w pel* [id number] Stat Exams 08/09/21 09:32 Completed Pending at discharge Category Date Time Status Abscess Culture a nd Gram Stain Rout ine Lab 08/09/21 20:45 Received Anaerobic Culture Routine Lab 08/09/21 20:45 Received Blood Culture Sta t Lab 08/09/21 10:05 Results Labs from last 24 hours 08/10/21 08/10/21 08/10/21 11:30 06:45 06:45 WBC RBC Hgb Hct MCV MCH MCHC RDW Plt Count MPV Neut % (Auto) Lymph % (Auto) [place] % (Auto) Eos % (Auto) Baso % (Auto) Neut # (Auto) Lymph # (Auto) [place] # (Auto) Eos # (Auto) Baso # (Auto) Nucleated RBC % (a uto) Nucleated RBCs # Sodium Potassium Chloride Carbon Dioxide Anion Gap BUN Creatinine GFR Calculation Glucose POC Glucose 420 H Calculated Osmolal ity Calcium Magnesium Total Bilirubin AST ALT Alkaline Phosphata se Troponin T 120 Min [place] Delta Troponin T Troponin T Hi Sens 6Hr Troponin T Hi Sens 6Hr Delta Total Protein Albumin Globulin Urine Color Straw Urine Appearance Clear Urine pH 5 Ur Specific Gravit y 1.010 Urine Protein Neg Urine Glucose (UA) 4+ H Urine Ketones 1+ H Urine Blood Neg Urine Nitrate Negative Urine Bilirubin Neg Urine Urobilinogen Norm Ur Leukocyte Nella ase Negative Urine Opiates Scre en Positive H Ur Barbiturates Sc reen Negative Ur Phencyclidine S crn Negative Ur Amphetamines Sc reen Negative U Benzodiazepines Scrn Negative Urine Cocaine Scre en Negative U Marijuana (THC) Screen Negative 08/10/21 08/10/21 08/10/21 06:36 04:20 04:20 WBC 12.3 H RBC 3.64 L Hgb 11.2 L Hct 35.5 L MCV 97.5 H MCH 30.8 MCHC 31.5 RDW 12.1 Plt Count 252 MPV 9.9 Neut % (Auto) 64.6 Lymph % (Auto) 24.9 [place] % (Auto) 8.4 Eos % (Auto) 1.6 Baso % (Auto) 0.2 Neut # (Auto) 7.94 H Lymph # (Auto) 3.1 [place] # (Auto) 1.0 H Eos # (Auto) 0.2 Baso # (Auto) 0.0 Nucleated RBC % (a uto) 0 Nucleated RBCs # 0.0 Sodium 130 L Potassium 5.0 Chloride 96 L Carbon Dioxide 21 L Anion Gap 18.0 BUN 15 Creatinine 0.8 GFR Calculation 111.3 Glucose 405 H POC Glucose 429 H Calculated Osmolal ity 288 Calcium 8.1 L Magnesium Total Bilirubin AST ALT Alkaline Phosphata se Troponin T 120 Min [place] Delta Troponin T Troponin T Hi Sens 6Hr Troponin T Hi Sens 6Hr Delta Total Protein Albumin Globulin Urine Color Urine Appearance Urine pH Ur Specific Gravit y Urine Protein Urine Glucose (UA) Urine Ketones Urine Blood Urine Nitrate Urine Bilirubin Urine Urobilinogen Ur Leukocyte Nella ase Urine Opiates Scre en Ur Barbiturates Sc reen Ur Phencyclidine S crn Ur Amphetamines Sc reen U Benzodiazepines Scrn Urine Cocaine Scre en U Marijuana (THC) Screen 08/10/21 08/09/21 08/09/21 00:14 21:49 17:14 WBC RBC Hgb Hct MCV MCH MCHC RDW Plt Count MPV Neut % (Auto) Lymph % (Auto) [place] % (Auto) Eos % (Auto) Baso % (Auto) Neut # (Auto) Lymph # (Auto) [place] # (Auto) Eos # (Auto) Baso # (Auto) Nucleated RBC % (a uto) Nucleated RBCs # Sodium 135 L Potassium 3.8 Chloride 98 Carbon Dioxide 24 Anion Gap 16.8 BUN 15 Creatinine 0.8 GFR Calculation 111.3 Glucose 103 POC Glucose 227 H 79 Calculated Osmolal ity 281 L Calcium 8.2 L Magnesium 1.6 L Total Bilirubin 0.4 AST 29 ALT 39 Alkaline Phosphata se 100 Troponin T 120 Min [place] Delta Troponin T Troponin T Hi Sens 6Hr Troponin T Hi Sens 6Hr Delta Total Protein 6.1 L Albumin 3.3 L Globulin 2.8 Urine Color Urine Appearance Urine pH Ur Specific Gravit y Urine Protein Urine Glucose (UA) Urine Ketones Urine Blood Urine Nitrate Urine Bilirubin Urine Urobilinogen Ur Leukocyte Nella ase Urine Opiates Scre en Ur Barbiturates Sc reen Ur Phencyclidine S crn Ur Amphetamines Sc reen U Benzodiazepines Scrn Urine Cocaine Scre en U Marijuana (THC) Screen 08/09/21 08/09/21 08/09/21 17:14 16:33 13:11 WBC RBC Hgb Hct MCV MCH MCHC RDW Plt Count MPV Neut % (Auto) Lymph % (Auto) [place] % (Auto) Eos % (Auto) Baso % (Auto) Neut # (Auto) Lymph # (Auto) [place] # (Auto) Eos # (Auto) Baso # (Auto) Nucleated RBC % (a uto) Nucleated RBCs # Sodium Potassium Chloride Carbon Dioxide Anion Gap BUN Creatinine GFR Calculation Glucose POC Glucose 143 H 238 H Calculated Osmolal ity Calcium Magnesium Total Bilirubin AST ALT Alkaline Phosphata se Troponin T 120 Min [place] Delta Troponin T Troponin T Hi Sens 6Hr 8.17 Troponin T Hi Sens 6Hr Delta -1.83 L Total Protein Albumin Globulin Urine Color Urine Appearance Urine pH Ur Specific Gravit y Urine Protein Urine Glucose (UA) Urine Ketones Urine Blood Urine Nitrate Urine Bilirubin Urine Urobilinogen Ur Leukocyte Nella ase Urine Opiates Scre en Ur Barbiturates Sc reen Ur Phencyclidine S crn Ur Amphetamines Sc reen U Benzodiazepines Scrn Urine Cocaine Scre en U Marijuana (THC) Screen 08/09/21 12:23 WBC RBC Hgb Hct MCV MCH MCHC RDW Plt Count MPV Neut % (Auto) Lymph % (Auto) [place] % (Auto) Eos % (Auto) Baso % (Auto) Neut # (Auto) Lymph # (Auto) [place] # (Auto) Eos # (Auto) Baso # (Auto) Nucleated RBC % (a uto) Nucleated RBCs # Sodium Potassium Chloride Carbon Dioxide Anion Gap BUN Creatinine GFR Calculation Glucose POC Glucose Calculated Osmolal ity Calcium Magnesium Total Bilirubin AST ALT Alkaline Phosphata se Troponin T 120 Min [place] 8.98 Delta Troponin T -1.02 L Troponin T Hi Sens 6Hr Troponin T Hi Sens 6Hr Delta Total Protein Albumin Globulin Urine Color Urine Appearance Urine pH Ur Specific Gravit y Urine Protein Urine Glucose (UA) Urine Ketones Urine Blood Urine Nitrate Urine Bilirubin Urine Urobilinogen Ur Leukocyte Nella ase Urine Opiates Scre en Ur Barbiturates Sc reen Ur Phencyclidine S crn Ur Amphetamines Sc reen U Benzodiazepines Scrn Urine Cocaine Scre en U Marijuana (THC) Screen Addt'l Data from Hospital Stay: Laboratory Results WBC 12.3 10^3/uL (4.0 -10.0) H 08/10/21 04:20 RBC 3.64 10^6/uL (4.1 -5.3) L 08/10/21 04:20 Hgb 11.2 g/dL (11.7-1 6.6) L 08/10/21 04:20 Hct 35.5 % (42.0-52.0 ) L 08/10/21 04:20 MCV 97.5 fl (80-94) H 08/10/21 04:20 MCH 30.8 pg (28.0-34. 0) 08/10/21 04:20 MCHC 31.5 g/dL (30.0-3 6.0) 08/10/21 04:20 RDW 12.1 % (12.1-15.1 ) 08/10/21 04:20 Plt Count 252 10^3/cmm (130 -400) 08/10/21 04:20 MPV 9.9 fL (7.4-10.4) 08/10/21 04:20 Neut % (Auto) 64.6 % 08/10/21 04:20 Lymph % (Auto) 24.9 % 08/10/21 04:20 [place] % (Auto) 8.4 % 08/10/21 04:20 Eos % (Auto) 1.6 % 08/10/21 04:20 Baso % (Auto) 0.2 % 08/10/21 04:20 Neut # (Auto) 7.94 10^3/uL (1.8 -7.7) H 08/10/21 04:20 Lymph # (Auto) 3.1 10^3/uL (0.8- 4.8) 08/10/21 04:20 [place] # (Auto) 1.0 10^3/uL (0.2- 0.9) H 08/10/21 04:20 Eos # (Auto) 0.2 10^3/uL (0.0- 0.8) 08/10/21 04:20 Baso # (Auto) 0.0 10^3/uL (0.0- 0.1) 08/10/21 04:20 Nucleated RBC % (a uto) 0 % 08/10/21 04:20 Nucleated RBCs # 0.0 /100WBC 08/10/21 04:20 Specimen Type Arterial 08/09/21 09:38 Sample Site Radial, right 08/09/21 09:38 ABG pH 7.41 (7.35-7.45) 08/09/21 09:38 ABG pCO2 42.5 mmHg (35-45) 08/09/21 09:38 ABG pO2 78.6 mmHg (80.0-1 00.0) L 08/09/21 09:38 ABG HCO3 27.0 mmol/L (22-2 6) H 08/09/21 09:38 ABG O2 Saturation 96.7 08/09/21 09:38 ABG Base Excess 2.1 mmol/L (-2.0- 2.0) H 08/09/21 09:38 Jose Test Pos 08/09/21 09:38 A-a O2 Gradient 2.5 mmHg (5-10) L 08/09/21 09:38 Hematocrit 34.8 % (42-52) L 08/09/21 09:38 Hgb O2 Saturation 94.4 % (95-100) L 08/09/21 09:38 Carboxyhemoglobin 1.3 %THgb (0.4-20 .1) 08/09/21 09:38 Methemoglobin 1.1 % (0.4-1.5) 08/09/21 09:38 Total Hemoglobin 11.4 g/dL (14-18) L 08/09/21 09:38 Sodium 128.0 mmol/L (131 -143) L 08/09/21 09:38 Potassium 5.4 mmol/L (3.5-5 .0) H 08/09/21 09:38 Glucose 515.0 mg/dL (70-1 15) H 08/09/21 09:38 Ionized Calcium 1.1 mmol/L (1.1-1 .4) 08/09/21 09:38 O2 Delivery Device Room air 08/09/21 09:38 FiO2 21.0 % 08/09/21 09:38 Cell Installer ID Ed 08/09/21 09:38 Sodium 130 mmol/L (136-1 45) L 08/10/21 04:20 Potassium 5.0 mmol/L (3.5-5 .1) 08/10/21 04:20 Chloride 96 mmol/L (98-107 ) L 08/10/21 04:20 Carbon Dioxide 21 mmol/L (22-29) L 08/10/21 04:20 Anion Gap 18.0 (5-19) 08/10/21 04:20 BUN 15 mg/dL (6-20) 08/10/21 04:20 Creatinine 0.8 mg/dL (0.7-1. 2) 08/10/21 04:20 GFR Calculation 111.3 mL/min (90- 130) 08/10/21 04:20 Glucose 405 mg/dL (65-115 ) H 08/10/21 04:20 POC Glucose 420 mg/dL (70-110 ) H 08/10/21 11:30 Calculated Osmolal ity 288 mOsm/kg (285- 295) 08/10/21 04:20 Lactic Acid 1.1 mmol/L (0.5-2 .2) 08/09/21 10:05 Calcium 8.1 mg/dL (8.5-10 .5) L 08/10/21 04:20 Magnesium 1.6 mg/dL (1.7-2. 3) L 08/09/21 17:14 Total Bilirubin 0.4 mg/dL (0.15-1 .2) 08/09/21 17:14 AST 29 U/L (0-40) 08/09/21 17:14 ALT 39 U/L (0-41) 08/09/21 17:14 Alkaline Phosphata se 100 IU/L (40-130) 08/09/21 17:14 Troponin T Baselin e 10 ng/L (0-15) 08/09/21 10:05 Troponin T 120 Min [place] 8.98 ng/L (0-15) 08/09/21 12:23 Delta Troponin T -1.02 ABS# (0-10) L 08/09/21 12:23 Troponin T Hi Sens 6Hr 8.17 ng/L (0-15) 08/09/21 17:14 Troponin T Hi Sens 6Hr Delta -1.83 ng/L (0-12) L 08/09/21 17:14 Total Protein 6.1 g/dL (6.6-8.7 ) L 08/09/21 17:14 Albumin 3.3 g/dL (3.5-5.2 ) L 08/09/21 17:14 Globulin 2.8 g/dL (1.3-4.6 ) 08/09/21 17:14 Urine Color Straw (Yellow) 08/10/21 06:45 Urine Appearance Clear (CLEAR) 08/10/21 06:45 Urine pH 5 (5-7) 08/10/21 06:45 Ur Specific Gravit y 1.010 (1.005-1.0 30) 08/10/21 06:45 Urine Protein Neg (Negative) 08/10/21 06:45 Urine Glucose (UA) 4+ (Normal) H 08/10/21 06:45 Urine Ketones 1+ (Negative) H 08/10/21 06:45 Urine Blood Neg (Negative) 08/10/21 06:45 Urine Nitrate Negative (Negati ve) 08/10/21 06:45 Urine Bilirubin Neg (Negative) 08/10/21 06:45 Urine Urobilinogen Norm mg/dL (Negat bobby) 08/10/21 06:45 Ur Leukocyte Nella ase Negative (Negati ve) 08/10/21 06:45 Urine Opiates Scre en Positive ng/mL (N egative) H 08/10/21 06:45 Ur Barbiturates Sc reen Negative ng/mL (N egative) 08/10/21 06:45 Ur Phencyclidine S crn Negative ng/mL (N egative) 08/10/21 06:45 Ur Amphetamines Sc reen Negative ng/mL (N egative) 08/10/21 06:45 U Benzodiazepines Scrn Negative ng/mL (N egative) 08/10/21 06:45 Urine Cocaine Scre en Negative ng/mL (N egative) 08/10/21 06:45 U Marijuana (THC) Screen Negative ng/mL (N egative) 08/10/21 06:45 Serum Ketones Negative (Negati ve) 08/09/21 10:05 Impressions Chest X-Ray 08/09/21 09:15 IMPRESSION: No acute findings. Radiation Dose CTDIVOL = (mGy): DLP = (mGy-cm) Hip/Pelvis X-Ray 08/09/21 09:32 IMPRESSION: No acute findings. Radiation Dose CTDIVOL = (mGy): DLP = (mGy-cm) Microbiology 08/09/21 20:45 Hip - Right Gram Stain - Final 08/09/21 10:06 Blood Blood Culture - Preliminary NEGATIVE TO DATE 08/09/21 10:05 Blood Blood Culture - Preliminary NEGATIVE TO DATE Vitals: Last Vital Signs Temp 98.2 F 08/10/21 11:31 Pulse 81 08/10/21 11:31 Resp 16 08/10/21 11:31 BP 108/66 08/10/21 11:31 Pulse Ox 94 08/10/21 11:31 Discharge Plan Discharge Patient Disposition: Home Condition: Stable Prescriptions: New cefadroxil 1 gram tablet 1,000 mg PO BID 7 Days Qty: 14 RF: 0 Lantus Solostar U-100 Insulin 100 unit/mL (3 mL) insulin pen 10 unit SUBCUT DAILY Qty: 15 RF: 0 Continued sulfamethoxazole-trimethoprim [Bactrim DS] 800-160 mg tablet 1 tab PO BID 7 Days Qty: 14 RF: 0 Discharge Orders: Discharge Order (Routine); Ordered 08/10/21 Ordered By: Raciel Hillman Discharge Diet: Diabetic Discharge Activity: Resume usual activity Patient Instructions: Cefadroxil (By mouth) (Duricef), Insulin Glargine (By injection) (Lantus, Lantus SoloStar, Toujeo, Semglee), Cellulitis (ED), Opioid Safety Activity Restrictions/Additional Instructions: Please continue taking your antibiotics have discussed in detail for next 7 days. Please follow-up with a primary care provider within the next 7 to 10 days. Please stressed daily as discussed in detail. Please check your blood sugars prior to meals for proper insulin dosage as per sliding scale. Please start Lantus 10 units daily in the morning. Discharge Attestations Time Spent in Discharge Care*: greater than 30 min Specific Discharge Activities: educating patient, educating and/or supporting family/caregiver, discussing with pcp/other providers, discussing with director case management/social workers/dc planners, documenting/other paperwork and evaluating patient/reviewing data Status at Discharge: Cognitive status at discharge: cognitively intact , Behavioral status at discharge: cooperative , Functional status at discharge: independent ambulation Overall status at discharge: patient is progressing back to baseline Quality Metrics Clinical Quality Measures During this hospital stay, did patient experience: None Coding Level of Care Code Acute Chg FW DC note Diagnoses Abscess or cellulitis of hip
[2021-08-10 13:29] VITALS: BP 108/66; PULSE 81; RESP 16; TEMP 36.8; O2SAT 94
== END 2021-08-10 13:30 | disposition home or self-care (01) ==
LOC: ER 11:51 → MEDSURG 08-10 07:23
PROVIDERS: Surgery; Admitting Provider Internal Medicine; Emergency Provider Emergency Medicine; Visit Provider Student in an Organized Health Care Education/Training Program
PROC: (CPT 10061; principal; 2021-08-09 20:00)
DX: L02.415 Cutaneous abscess of right lower limb (principal); L03.115 Cellulitis of right lower limb; E11.65 Type 2 diabetes mellitus with hyperglycemia; F17.220 Nicotine dependence, chewing tobacco, uncomplicated; Z79.4 Long term (current) use of insulin; E87.5 Hyperkalemia; E83.42 Hypomagnesemia; E87.1 Hypo-osmolality and hyponatremia
CPT/HCPCS: 10061; 36415; 36416; 36600; 71045; 73502; 80048; 80051; 80053; 80306; 81003; 82009; 82330; 82805; 82962; 83605; 83735; 84484; 85025; 87040; 87070; 87075; 87205; 93005; 96365; 96366; 96367; 96372; 96375; 99285; G0378; J1815; J2270; J2405; J2543; J2704; J3010; J3370; J3475; J3490; J7030